=== PATIENT | male | born 1970 | race Caucasian/White ===

== ENCOUNTER 2017-10-06 09:20 | Outpatient (CLI) ==
--- NOTE | 2017-10-06 10:01 | US ---
EXAM: Thyroid ultrasound History: Hypothyroidism. Technique: Multiple sonographic images through the thyroid gland were obtained. Color duplex Dopple r was used to interrogate vascular flow. Findings: The right lobe of the thyroid measures 4.2 cm x 1.1 cm x 1.5 cm and is without discrete nodule identi fied. The thyroid isthmus measures 0.2 cm in thickness. The left lobe of the thyroid measures 2.9 cm x 1.1 cm x 1.1 cm and is without discrete nodule identif ied. No extrathyroidal masses identified. The thyroid gland demonstrates generalized heterogeneous echote xture with slightly increased vascularity. Impression: 1. Normal sized thyroid gland with no discrete nodules identified. 2. Generalized heterogeneous echotexture of the thyroid gland with slightly increased vascularity. Correlate for thyroiditis.
== END 2017-10-06 09:21 | disposition home or self-care (01) ==
LOC: RAD 09:20
PROVIDERS: ATTEND Physician Assistant
DX: E03.9 Hypothyroidism, unspecified (principal)